=== PATIENT | female | born 1945 | race African-American/Black ===

== ENCOUNTER 2018-10-29 13:47 | Emergency (ER) | payer MEDICARE, OTHER ==
[~2018-10-29] VITALS: Ht 157.5 cm; Wt 97.1 kg
[~2018-10-29 13:47] MED LIST: HYDR-2765 PO; MULT-658 PO; OMEP20CA10 PO
[2018-10-29 14:37] VITALS: BP 159/84
--- NOTE | 2018-10-29 15:31 | PHYS DOC ---
Past Medical History Past Medical History: No Pertinent History Past Surgical History: Knee Replacement Alcohol Use: None Drug Use: None Adult General Chief Complaint Chief Complaint: Neck Pain HPI HPI Patient is a 73 year old female presents with neck pain and headache ongoing for month. No history of migraines. The patient denies any fever, or other associated symptoms. The patient states that she took Flexeril 11 AM this morning which has not helped the pain. This was after seeing her primary care doctor yesterday at clinic who suggested Flexeril and also give steroids that she's not started yet. The patient states that her pain is 5 out of 10 in severity and she takes daily Tylenol 3's due to chronic knee pain. Review of Systems Review of Systems Constitutional: Denies fever or chills [] Eyes: Denies change in visual acuity, redness, or eye pain [] HENT: Denies nasal congestion or sore throat [] Respiratory: Denies cough or shortness of breath [] Cardiovascular: No additional information not addressed in HPI [] GI: Denies abdominal pain, nausea, vomiting, bloody stools or diarrhea [] : Denies dysuria or hematuria [] Musculoskeletal: Reports neck pain. Integument: Denies rash or skin lesions [] Neurologic: Denies headache, focal weakness or sensory changes [] Endocrine: Denies polyuria or polydipsia [] Complete systems were reviewed and found to be within normal limits, except as documented in this note. Allergies Allergies Allergies Coded Allergies Type Severity Reaction Last Updated Verified Penicillins Allergy Intermediate Hives 05/27/14 Yes Physical Exam Physical Exam Constitutional: Well developed, well nourished, no acute distress, non-toxic appearance. [] HENT: Normocephalic, atraumatic, bilateral external ears normal, oropharynx moist, no oral exudates, nose normal. [] Eyes: PERRLA, EOMI, conjunctiva normal, no discharge. [] Neck: Normal range of motion, tenderness to the right side behind the right ear, supple, no stridor. -kernig's, -brudzinskis. Cardiovascular:Heart rate regular rhythm, no murmur [] Lungs & Thorax: Bilateral breath sounds clear to auscultation [] Abdomen: Bowel sounds normal, soft, no tenderness, no masses, no pulsatile masses. [] Skin: Warm, dry, no erythema, no rash. [] Back: No tenderness, no CVA tenderness. [] Extremities: No tenderness, no cyanosis, no clubbing, ROM intact, no edema. [ Neurologic: Alert and oriented X 3, normal motor function, normal sensory function, no focal deficits noted. [] Psychologic: Affect normal, judgement normal, mood normal. [] Current Patient Data Vital Signs Vital Signs Date Time Temp Pulse Resp B/P (MAP) Pulse Ox O2 Delivery O2 Flow Rate FiO2 10/29/18 14:37 98.1 76 18 159/84 (109) 98 Room Air 98.1 EKG EKG [] Radiology/Procedures Radiology/Procedures []PATIENT: VIOLET ALFREDACCOUNT: [id number]#: [id number] : 1945 LOCATION: ER AGE: 73 SEX: F EXAM STATUS: REG ER ORD. PHYSICIAN: VIC STRONG APRN REASON: headache PROCEDURE: CT HEAD WO CONTRAST CT HEAD WO CONTRAST History: Headache Comparison: None. Technique: Noncontrast CT imaging was performed of the head. Exposure: One or more of the following individualized dose reduction techniques were utilized for this examination: 1. Automated exposure control 2. Adjustment of the mA and/or kV according to patient size 3. Use of iterative reconstruction technique. Findings: No intracranial hemorrhage. No mass effect. No hydrocephalus. Extra-axial spaces are unremarkable. Imaged orbits are unremarkable. Imaged paranasal sinuses and mastoid air cells are clear. Impression: 1. No acute intracranial abnormality. Electronically signed by: Wayne Alcantara DO (10/29/2018 3:48 PM) [id number] DICTATED and SIGNED BY: WAYNE ALCANTARA DO DATE: 10/29/18 1548 Course & Med Decision Making Course & Med Decision Making Pertinent Labs and Imaging studies reviewed. (See chart for details) Does not have a history of migraine, headache ongoing for a month will get CT of Head. CT of the head is normal. Will d/c home to follow up with PCP. Paige Disclaimer Paige Disclaimer This electronic medical record was generated, in whole or in part, using a voice recognition dictation system. Departure Departure Impression: Primary Impression: Neck pain Disposition: HOME, SELF-CARE Condition: STABLE Referrals: SHORTY CHAVEZ D.O. (PCP) Patient Instructions: Epidural Blood Patching in Spinal Headache Additional Instructions: Thank you for visiting [facility]. We appreciate you trusting us with your care. If any additional problems come up don't hesitate to return to visit us. Please follow up with your primary care provider so they can plan additional care if needed and know about the problem that you had. If symptoms worsen come back to the Emergency Department. Any concerning symptoms that start such as chest pain, shortness of air, weakness or numbness on one side of the body, running high fevers or any other concerning symptoms return to the ER. Please keep trying Flexeril, and try steroids. Follow back up with primary care doctor. VIC STRONG APRN Oct 29, 2018 15:31
--- NOTE | 2018-10-29 15:51 | RAD ---
CT HEAD WO CONTRAST History: Headache Comparison: None. Technique: Noncontrast CT imaging was performed of the head. Exposure: One or more of the following individualized dose reduction techniques were utilized for this examination: 1. Automated exposure control 2. Adjustment of the mA and/or kV according to patient size 3. Use of iterative reconstruction technique. Findings: No intracranial hemorrhage. No mass effect. No hydrocephalus. Extra-axial spaces are unremarkable. Imaged orbits are unremarkable. Imaged paranasal sinuses and mastoid air cells are clear. Impression: 1. No acute intracranial abnormality. Electronically signed by: Wayne Alcantara DO (10/29/2018 3:48 PM) [id number]
== END 2018-10-29 16:13 | disposition home or self-care (01) ==
LOC: ER 13:47
DX: M54.2 Cervicalgia (principal); R51 Headache; Z96.659 Presence of unspecified artificial knee joint; Z88.0 Allergy status to penicillin
CPT/HCPCS: 70450; 99284